=== PATIENT | male | born 2000 | race Native Hawaiian/Other Pacific Islander ===

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

== ENCOUNTER 2021-01-08 13:29 | Outpatient (CLI) | payer MEDICAID, SELFPAY ==
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
== END 2021-01-08 13:49 ==
PROVIDERS: PCP Pediatrics; Visit Provider Physician Assistant
DX: S62.326D Displaced fracture of shaft of fifth metacarpal bone, right hand, subsequent encounter for fracture with routine healing (principal)
CPT/HCPCS: 73130

== ENCOUNTER 2021-01-09 13:54 | Emergency (ER) | payer MEDICAID, SELFPAY ==
[2021-01-09 13:58] VITALS: BP 148/85; PULSE 102; RESP 18; TEMP 36.6; O2SAT 99
--- NOTE | 2021-01-09 14:15 | ED.GENADUL_ITS ---
Discharge Plan Disposition Patient Disposition: HOME Condition: Stable Discharge Details Clinical Impression: Side pain, Chest wall pain Primary Care Provider: Dmitry Simmons ED Provider: Yaneth Sexton Home Meds and New Rx's Prescriptions: Continued clotrimazole 1 % cream 1 applic topical BID 28 Days Qty: 15 RF: 1 Discharge Instructions Instructions: Flank Pain (ED), Chest Wall Pain (ED) Additional Instructions: Drink plenty of fluids and get plenty of rest. Alternate ice and heat to the affected area(s) several times daily for 20 minutes at a time. Alternate tylenol and motrin as needed and directed for pain. You can try [id number] lidoderm patches to use as needed and directed for pain. You can try [id number] Lotrimin cream to use on your rash if you do not fill the clotrimazole prescription. If you have no relief with the Lotrimin, you should fill the clotrimazole prescription and use as directed. If your rash does not improve or worsens, follow-up with dermatology for further evaluation. Follow-up with your primary care doctor in 1 week. Return to the emergency department with any worsening or new concerning symptoms such as fever, persistent vomiting, worsening pain or any other concerns for reevaluation. Discharge Data Discharge Date/Time-TO BE ENTERED AT DEPARTURE: 01/09/21 17:15 Discharge Physician: Yaneth Sexton Medical Decision Making <Luiz Connor MD - Last Filed: 01/09/21 15:03> 20 yo male with hx of depression and migraines comes in with cc of right flank pain per patient for several days. He localizes it to the right chest in the mid axillary line over the 9-10 ribs and also in the right oblique. Deneis fevers, chills, diaphoresis. HAs no abdominal tenderness and has reproduble pain in the right oblique and right lower shalonda wall, suspect musculoskeletal chest pain but given location and worsening pain will obtain renal colic to evaluate for kidney stone. HAs no central chest pressure, no diaphoresis and heart score is 1 so doubt acs at this time but will obtain ecg and troponin. Wells low, no evidence of dvt, will obtain d d ole to evaluate for possible PE. No abdominal tenderness to suggest surgical pathology such as sbo, appendicitis, cholecystitis. Differential Diagnosis Differential Diagnosis: kidney stone, chest wall pain, pe ECG Data Attestation: I personally reviewed and interpreted this ECG (s) as follows: Prior ECG tracings: not available for review Interpretation: sinus rhythm, rate of 83, pr 154, qtc 410 <Yaneth Sexton DO - Last Filed: 01/09/21 21:30> 1500 --please see Dr. Connor's note for initial presentation, exam and plan. Case endorsed to follow-up on labs and imaging and final disposition. Patient assessed by me at bedside. He states he has had right lateral rib pain for the past 3 days that has been constant sharp pain and worse with movement or certain positions. Denies any known injury. He denies any fever, cough, chest pain, shortness of breath, nausea, vomiting, diarrhea, urinary symptoms. He has not taken any medication for pain. He declined a dose of Toradol to the nurse. His right lateral inferior chest is tender to palpation. He has right anterior upper quadrant tenderness but nontender to deep palpation. There is no evidence of rash or cellulitis. He has no CVA tenderness. Discussed with patient that it appears his presentation is musculoskeletal as it is reproducible and tender to palpation and worse with movement. Presentation not consistent with a GI etiology as he has no GI symptoms and not consistent with etiology as he has no urinary symptoms. CT is reviewed and negative. Urinalysis negative. D-dimer negative. We will add a metabolic panel. Patient now agreeable to the dose of Toradol. We will also place Lidoderm patch. 1700 --metabolic panel unremarkable. Patient reassessed and he denies any significant change in symptoms. Patient is requesting to go home. Patient advised to alternate ice and heat, Tylenol and Motrin. Advised to follow up with the primary care doctor for re-evaluation. Usual and customary return precautions given prior to discharge. Medical Records Medical records reviewed: Yes I reviewed the patient's medical records. Imaging Data Radiologic Study: Radiologist's impression: CT RENAL COLIC WO CLINICAL HISTORY: right flank pain. TECHNIQUE: Imaging Protocol: Axial computed tomography images with coronal and sagittal reformatted images were created and reviewed. CONTRAST MATERIAL: Noncontrast COMPARISON: No exams were available for comparison FINDINGS: ABDOMEN: Liver: Enlarged with moderate to severe hepatic steatosis.. No measurable mass. Gallbladder and biliary tract: No radiodense calculus or dilation. Pancreas: Normal density, no calcifications or inflammatory process. Spleen: Normal. Kidneys: Normal size, contour and axis. No radiodense stones or obstructive uropathy. No masses seen. No perinephric collection Adrenal glands: No masses seen. Abdominal Aorta: Abdominal portion non-dilated. PELVIS: Bladder: Symmetric distention, no gross wall thickening. Bowel: No obstruction or bowel wall thickening. Peritoneal cavity: No ascites, collection or mesenteric inflammatory response. Bones: Within normal limits. IMPRESSION: Unremarkable noncontrast CT scan of the abdomen and pelvis. Lab Data Lab results reviewed: Yes I reviewed the patient's lab results. Labs: Laboratory Tests Range/Units 01/09/21 01/09/21 01/09/21 15:10 15:10 15:10 WBC (4.4-10.8) 10^3/uL 6.96 RBC (4.36-5.78) 10^6/uL 5.57 Hgb (13.5-17.5) g/dL 14.4 Hct (40.0-50.0) % 45.1 MCV (80-95) fL 81.0 MCH (27.0-33.0) pg 25.9 L MCHC (32.0-36.0) % 31.9 L RDW (11.8-14.1) % 13.4 Plt Count (130-400) 10^3/uL 299 MPV (8.0-11.0) fL 10.0 Immature Gran % 0.3 Neutrophils % 60.8 Lymphocytes % 29.6 Monocytes % 7.0 Eosinophils % 1.3 Basophils % 1.0 Nucleated RBC % % 0 Absolute Neutrophils (1.2-6.7) 10^3/uL 4.23 Absolute Lymphocytes (1.2-3.4) 10^3/uL 2.06 Absolute Monocytes (0.1-0.8) 10^3/uL 0.49 Absolute Eosinophils (0.0-0.7) 10^3/uL 0.09 Absolute Basophils (0.0-0.2) 10^3/uL 0.07 PT (9.3-11.0) sec 10.1 INR (0.9-1.1) 1.0 APTT (21.0-27.5) sec 27.2 D-Dimer (<500) ng/mlFEU 182 Sodium (136-145) mmol/L Potassium (3.5-5.1) mmol/L Chloride (98-107) mmol/L Carbon Dioxide (21.0-32.0) mmol/L Anion Gap (3-11) mmol/L BUN (7-18) mg/dL Creatinine (0.70-1.30) mg/dL Estimated GFR/1.73 m2 (mL/min/1.73m2) Glucose (74-106) mg/dL Calcium (8.5-10.1) mg/dL Magnesium (1.8-2.4) mg/dL 2.1 Total Bilirubin (0.2-1.0) mg/dL 0.4 Conjugated Bilirubin (0.0-0.2) mg/dL 0.1 AST (15-37) U/L ALT (16-63) U/L Alkaline Phosphatase (46-116) U/L Troponin I (<0.06) ng/mL < 0.05 Total Protein (6.4-8.2) g/dL Albumin (3.4-5.0) g/dL Lipase (73-393) U/L 82 Urine Color (Yellow) Urine Clarity (Clear) Urine pH (5-8) Ur Specific [place] (1.005-1.025) Urine Protein (Negative) mg/dL Urine Ketones (Negative) mg/dL Urine Blood (Negative) Urine Nitrite (Negative) Urine Bilirubin (Negative) Urine Urobilinogen (Up TO 0.2) EU/dL Ur Leukocyte Esterase (Negative) Urine Glucose (Negative) mg/dL Range/Units 01/09/21 01/09/21 15:10 15:15 WBC (4.4-10.8) 10^3/uL RBC (4.36-5.78) 10^6/uL Hgb (13.5-17.5) g/dL Hct (40.0-50.0) % MCV (80-95) fL MCH (27.0-33.0) pg MCHC (32.0-36.0) % RDW (11.8-14.1) % Plt Count (130-400) 10^3/uL MPV (8.0-11.0) fL Immature Gran % Neutrophils % Lymphocytes % Monocytes % Eosinophils % Basophils % Nucleated RBC % % Absolute Neutrophils (1.2-6.7) 10^3/uL Absolute Lymphocytes (1.2-3.4) 10^3/uL Absolute Monocytes (0.1-0.8) 10^3/uL Absolute Eosinophils (0.0-0.7) 10^3/uL Absolute Basophils (0.0-0.2) 10^3/uL PT (9.3-11.0) sec INR (0.9-1.1) APTT (21.0-27.5) sec D-Dimer (<500) ng/mlFEU Sodium (136-145) mmol/L 141 Potassium (3.5-5.1) mmol/L 4.0 Chloride (98-107) mmol/L 104 Carbon Dioxide (21.0-32.0) mmol/L 26.9 Anion Gap (3-11) mmol/L 10.1 BUN (7-18) mg/dL 15 Creatinine (0.70-1.30) mg/dL 0.9 Estimated GFR/1.73 m2 (mL/min/1.73m2) >= 60.00 Glucose (74-106) mg/dL 113 H Calcium (8.5-10.1) mg/dL 9.4 Magnesium (1.8-2.4) mg/dL Total Bilirubin (0.2-1.0) mg/dL 0.4 Conjugated Bilirubin (0.0-0.2) mg/dL AST (15-37) U/L 21 ALT (16-63) U/L 55 Alkaline Phosphatase (46-116) U/L 91 Troponin I (<0.06) ng/mL Total Protein (6.4-8.2) g/dL 8.3 H Albumin (3.4-5.0) g/dL 4.0 Lipase (73-393) U/L Urine Color (Yellow) Yellow Urine Clarity (Clear) Clear Urine pH (5-8) 6.0 Ur Specific [place] (1.005-1.025) >= 1.030 H Urine Protein (Negative) mg/dL Negative Urine Ketones (Negative) mg/dL Negative Urine Blood (Negative) Negative Urine Nitrite (Negative) Negative Urine Bilirubin (Negative) Negative Urine Urobilinogen (Up TO 0.2) EU/dL 0.2 Ur Leukocyte Esterase (Negative) Negative Urine Glucose (Negative) mg/dL Negative HPI <Luiz Connor MD - Last Filed: 01/09/21 15:03> General Mode of arrival: ambulatory . Date/Time Provider Initiated Documentation: 01/09/21 14:05 . Limitations to Documentation: no limitations . Information obtained by: patient . History of Present Illness 20 year old M presents to the emergency department with the chief complaint of right flank pain, described as moderate, Patient started experiencing this day(s) (3) and it has been constant. No relieving factors improve symptom(s), No exacerbating factors reported . Patient did receive the following treatments prior to arrival, none Related Data Home Medications Medication Instructions Recorded Confirmed clotrimazole 1 % topical cream 1 applic TOPICAL BID 28 Days #15 g 01/07/21 01/09/21 Previous Rx's Medication Instructions Recorded clotrimazole 1 % topical cream 1 applic TOPICAL BID 28 Days #15 g 01/07/21 Allergies Allergy/AdvReac Type Severity Reaction Status Date / Time sumatriptan [From Imitrex] AdvReac Intermediate HEAD FELT Verified 01/09/21 14:03 HOT AND LIKE PINS AND NEEDLES. General Stated Complaint: FlankPain DANISH: 3 Review of Systems <Luiz Connor MD - Last Filed: 01/09/21 15:03> All systems reviewed & are unremarkable except as noted in HPI and below Constitutional Constitutional: Denies chills, Denies fever(s) and Denies weakness Cardiovascular Cardiovascular: Denies dyspnea Respiratory Respiratory: Denies cough and Denies dyspnea Gastrointestinal Gastrointestinal: Denies nausea and Denies vomiting Integumentary/Breasts Skin/Breast: Denies rash Neurologic Neurologic: Denies weakness Psychiatric Psychiatric: Denies depression Endocrine Endocrine: Denies heat intolerance PFSH <Luiz Connor MD - Last Filed: 01/09/21 15:03> Medical History (Updated 01/09/21 @ 17:15 by Yaneth Sexton DO) BMI (body mass index), 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, obese child structured weight management/multidisciplinary intervention category (11/09/16) Depression 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[employer] [employer] Headache Insomnia Migraine, unspecified, not intractable, without status migrainosus (11/30/16) School issues ?ADD 11/09 504 PLAN Family History Mother Substance abuse Father Substance abuse Social History (Updated 06/19/19 @ 13:06 by Adriana Hernandez RN) Smoking/Tobacco Use Status: Current-Occasional Tobacco Type: cigarettes, cigars and e-cigarettes Second Hand Exposure: No Smoking risk assessment performed?: Yes Alcohol Intake: current Alcohol Intake frequency: a few times a month Drug use: Occasionally Substance use type: marijuana Household members: other Details: roommate Housing: apartment Do you feel safe at home: Yes Do you feel safe in your relationship?: Yes Exam <Luiz Connor MD - Last Filed: 01/09/21 15:03> Const General: no acute distress Orientation: alert HENMT Head: normal to inspection Ears: external ears normal General nose exam: external nose normal Mouth: moist mucous membranes Eyes General: appearance normal, both eyes and all related structures Neck Neck: normal visual inspection Chest Chest: no crepitus and tenderness Resp Effort & Inspection: normal respiratory effort and able to speak in complete sentences Cardio Rate: regular rate GI Palpation: soft Skin General skin exam: no rashes or lesions noted Neuro General: patient alert and patient oriented x3 Extrem General: normal to inspection Psych Mental Status: mental status grossly normal Course <Luiz Connor MD - Last Filed: 01/09/21 15:03> Vital Signs Vital signs: Vital Signs Temperature 36.6 C 01/09/21 13:58 Pulse 102 H 01/09/21 13:58 Respiratory Rate 18 01/09/21 13:58 Blood Pressure 148/85 H 01/09/21 13:58 Pulse Oximetry 99 01/09/21 13:58 Temperature 36.6 C 01/09/21 13:58 Temperature Source Skin 01/09/21 13:58 Pulse 102 H 01/09/21 13:58 Respiratory Rate 18 01/09/21 13:58 Respiratory Effort 01/09/21 14:04 Blood Pressure 148/85 H 01/09/21 13:58 Blood Pressure Position Sitting 01/09/21 13:58 Pulse Oximetry 99 01/09/21 13:58 Oxygen Delivery Method Room Air 01/09/21 13:58 Oxygen Flow Rate 0 01/09/21 13:58 Pain Level 7 01/09/21 13:58 Sign Out <Luiz Connor MD - Last Filed: 01/09/21 15:03> Sign Out Data: Sign Out Comment: flank pain, pending labs and imaging, dispo Last updated by Luiz oCnnor MD at 01/09/21 14:43
--- NOTE | 2021-01-09 14:15 | RT.EKG_ITS ---
APPROVED REPORT Exam: Resting ECG Patient Location: E HR:83 bpm ECG Measurements Heart Rate 83 AXIS CA 154 P 14 QRSd 92 QRS -6 QT 349 T 46 QTc 410 Conclusion Sinus rhythm...normal P axis, V-rate 60- 99
--- NOTE | 2021-01-09 15:05 | DI.CT_ITS ---
EXAM: CT RENAL COLIC WO CLINICAL HISTORY: right flank pain. TECHNIQUE: Imaging Protocol: Axial computed tomography images with coronal and sagittal reformatted images were created and reviewed. CONTRAST MATERIAL: Noncontrast COMPARISON: No exams were available for comparison FINDINGS: ABDOMEN: Liver: Enlarged with moderate to severe hepatic steatosis.. No measurable mass. Gallbladder and biliary tract: No radiodense calculus or dilation. Pancreas: Normal density, no calcifications or inflammatory process. Spleen: Normal. Kidneys: Normal size, contour and axis. No radiodense stones or obstructive uropathy. No masses seen. No perinephric collection Adrenal glands: No masses seen. Abdominal Aorta: Abdominal portion non-dilated. PELVIS: Bladder: Symmetric distention, no gross wall thickening. Bowel: No obstruction or bowel wall thickening. Peritoneal cavity: No ascites, collection or mesenteric inflammatory response. Bones: Within normal limits. IMPRESSION: Unremarkable noncontrast CT scan of the abdomen and pelvis. RADIATION DOSE DELIVERED: 1,317.96mGy.cm Total DLP DATA REPOSITORY: All CT scans at this facility are submitted to the National Radiology Data Registry (NRDR) Dose Index Registry (DIR) with the [employer] (A[employer]). RADIATION OPTIMIZATION: All CT scans at this facility use at least one of these dose optimization te chniques: automated exposure control; mA and/or kV adjustment per patient size (includes targeted exa ms where dose is matched to clinical indication); or iterative reconstruction.
[2021-01-09 15:23] LABS: Abs Immature Grans 0.02 10^3/uL (0.0-0.06); Absolute Basophil Count 0.07 10^3/uL (0.0-0.2); Absolute Eosinophil Count 0.09 10^3/uL (0.0-0.7); Absolute Lymphocyte Count 2.06 10^3/uL (1.2-3.4); Absolute Monocyte Count 0.49 10^3/uL (0.1-0.8); Absolute Neutrophil Count 4.23 10^3/uL (1.2-6.7); Eosinophils % 1.3; HCT 45.1 % (40.0-50.0); HGB 14.4 g/dL (13.5-17.5); Immature Grans % 0.3; Lymphocytes % 29.6; MCH 25.9 pg (27.0-33.0); MCHC 31.9 % (32.0-36.0); Neutrophils % 60.8; Nucleated RBC 0 %; Platelet Count 299 10^3/uL (130-400); RBC 5.57 10^6/uL (4.36-5.78); RDW 13.4 % (11.8-14.1); RDW-SD 39.3 fL; WBC 6.96 10^3/uL (4.4-10.8)
[2021-01-09 15:36] LABS: PTT Activated 27.2 sec (21.0-27.5); Prothrombin Time 10.1 sec (9.3-11.0)
[2021-01-09 15:39] LABS: Bilirubin, Direct 0.1 mg/dL (0.0-0.2); Bilirubin, Total 0.4 mg/dL (0.2-1.0); Lipase 82 U/L (73-393); Magnesium 2.1 mg/dL (1.8-2.4)
[2021-01-09 15:44] LABS: Bilirubin Negative (Negative); Blood Negative (Negative); Clarity Clear (Clear); Glucose Negative (Negative); Ketones Negative (Negative); Leukocyte Esterase Negative (Negative); Nitrite Negative (Negative); Specific Gravity >= 1.030 (1.005-1.025); Urobilinogen 0.2 EU/dL (Up TO 0.2)
[2021-01-09 15:53] LABS: D-Dimer 182 ng/mlFEU (<500)
[2021-01-09] MEDS: Ketorolac 30 MG/ML VIAL IVP (16:14)
[2021-01-09] MEDS: Lidocaine 5% Patch 1 PATCH TP (16:15)
[2021-01-09 16:23] LABS: Troponin I < 0.05 ng/mL (<0.06)
[2021-01-09 16:50] LABS: ALT 55 U/L (16-63); AST 21 U/L (15-37); Alkaline Phosphatase 91 U/L (46-116); Anion Gap 10.1 mmol/L (3-11); BUN 15 mg/dL (7-18); Bilirubin, Total 0.4 mg/dL (0.2-1.0); CO2 26.9 mmol/L (21.0-32.0); CREATININE 0.9 mg/dL (0.70-1.30); Calcium 9.4 mg/dL (8.5-10.1); Chloride 104 mmol/L (98-107); Glucose 113 mg/dL (74-106); Sodium 141 mmol/L (136-145); Total Protein 8.3 g/dL (6.4-8.2)
[2021-01-09 17:19] VITALS: BP 129/75; PULSE 68; RESP 18; TEMP 36.7; O2SAT 99
== END 2021-01-09 17:15 | disposition home or self-care (01) ==
PROVIDERS: Emergency Medicine; Emergency Provider Physician Assistant; PCP Pediatrics
DX: R10.9 Unspecified abdominal pain (principal); R07.89 Other chest pain
CPT/HCPCS: 80053; 83690; 93005; 96374; 99284; 74176; 81003; 82247; 82248; 83735; 84484; 85025; 85379; 85610; 85730; 93010; 99283; J1885

== ENCOUNTER 2021-06-16 13:51 | Emergency (ER) | payer MEDICAID, SELFPAY ==
[2021-06-16 13:55] VITALS: BP 137/99; PULSE 96; RESP 18; TEMP 36.5; O2SAT 95
--- NOTE | 2021-06-16 14:01 | ED.GENADUL_ITS ---
Discharge Plan Disposition Patient Disposition: HOME Condition: Good Discharge Details Clinical Impression: Acute otalgia Primary Care Provider: Unknown,Unknown ED Provider: Gaby Saunders Home Meds and New Rx's Prescriptions: No Action No Known Home Meds RF: 0 Discharge Instructions Additional Instructions: Please follow-up with your primary care physician as needed There is no evidence of any foreign body in your ear right now Please return earlier should you have new or worsening complaints Discharge Data Discharge Date/Time-TO BE ENTERED AT DEPARTURE: 06/16/21 14:10 Medical Decision Making Patient appears well, there is no obvious foreign body visualized on exam Discharged home in stable condition Return precautions discussed Blood pressure recheck by primary care physician in the outpatient setting recommended [facility] General Mode of arrival: ambulatory . Date/Time Provider Initiated Documentation: 06/16/21 13:51 . Limitations to Documentation: no limitations . Information obtained by: patient . HPI Narrative: This 20-year-old male presents with sensation of foreign body in left ear. He states is been going on for the past 2 days. He states that right now she is asymptomatic. He denies any headache, chest pain, shortness of breath. He states he feels a fluttering sensation in his ear. He is concerned that there is a spider present. He tried irrigating his ear last evening states he is asymptomatic until this morning lasted several seconds. Currently he is asymptomatic. He denies any additional complaints at this time. Denies any pain complaints. Denies any fluid from the ear. Related Data Home Medications Medication Instructions Recorded Confirmed Unknown [No Known Home Meds] 06/16/21 06/16/21 Allergies Allergy/AdvReac Type Severity Reaction Status Date / Time sumatriptan [From Imitrex] AdvReac Intermediate HEAD FELT Verified 06/16/21 14:00 HOT AND LIKE PINS AND NEEDLES. 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[employer] [facility] Headache Insomnia Migraine, unspecified, not intractable, without status migrainosus (11/30/16) School issues ?ADD 11/09 504 PLAN Family History Mother Substance abuse Father Substance abuse Maternal Grandmother Myocardial infarction Social History Smoking/Tobacco Use Status: Current-Occasional Tobacco Type: cigarettes, cigars and e-cigarettes Second Hand Exposure: No Smoking risk assessment performed?: Yes Alcohol Intake: current Alcohol Intake frequency: a few times a month Drug use: Occasionally Substance use type: marijuana Housing: apartment Communication Needs: None Pets and animals: No Do you feel safe at home: Yes Do you feel safe in your relationship?: Yes Exam Const General: cooperative, healthy appearing and comfortable HENMT Ears: hearing grossly normal bilaterally and TM's normal bilaterally Mouth: oral mucosae normal Other: No foreign body noted to bilateral external auditory canals, tiny amount of cerumen noted, typically no foreign body to left ear Can light intact, no perforation, no mastoid tenderness Course Vital Signs Vital signs: Vital Signs Temperature 36.5 C 06/16/21 13:55 Pulse 96 H 06/16/21 13:55 Respiratory Rate 18 06/16/21 13:55 Blood Pressure 137/99 H 06/16/21 13:55 Pulse Oximetry 95 06/16/21 13:55 Temperature 36.5 C 06/16/21 13:55 Temperature Source Oral 06/16/21 13:55 Pulse 96 H 06/16/21 13:55 Respiratory Rate 18 06/16/21 13:55 Blood Pressure 137/99 H 06/16/21 13:55 Blood Pressure Position Sitting 06/16/21 13:55 Pulse Oximetry 95 06/16/21 13:55 Oxygen Delivery Method Room Air 06/16/21 13:55 Oxygen Flow Rate 0 06/16/21 13:55 Pain Level 0 06/16/21 13:55
== END 2021-06-16 14:10 | disposition home or self-care (01) ==
PROVIDERS: Emergency Provider Physician Assistant
DX: H92.02 Otalgia, left ear (principal)
CPT/HCPCS: 99282; 99281

== ENCOUNTER 2021-06-16 23:32 | Emergency (ER) | payer MEDICAID, SELFPAY ==
[2021-06-16 23:38] VITALS: BP 153/83; PULSE 72; RESP 18; TEMP 36.7; O2SAT 96
--- NOTE | 2021-06-16 23:47 | ED.GENADUL_ITS ---
Discharge Plan Disposition Patient Disposition: HOME Condition: Good Discharge Details Clinical Impression: Acute pain of left ear Primary Care Provider: Unknown,Unknown ED Provider: Bj Tamayo Home Meds and New Rx's Prescriptions: No Action No Known Home Meds RF: 0 Discharge Instructions Instructions: Earache (ED) Additional Instructions: At this time there is no evidence of infection in the ear. You certainly do have some tension at your temporomandibular joint, this may be causing some referred pain. There is no evidence of significant mass or other abnormality to suggest a clear cause of the pain otherwise. Please follow-up closely with the ENT doctor. We have placed a referral, they will contact you when they have an appointment date. If you notice any worsening of your symptoms, or any new symptoms such as vomiting, diarrhea, fever, chills, shortness of breath, chest pain, numbness, weakness, or fainting , please return immediately to the emergency department for reevaluation. Please follow up with your primary care provider as soon as possible for reassessment and reevaluation. As always, it was a pleasure participating in your medical care today. Referrals: Jerry Luu DO [OSTEOPATHIC DOCTOR] - Marty Hong MD [ [facility] STAFF PHYSICIAN] - Medical Decision Making This is a 20-year-old male who presents for reassessment of left ear pain. Patient was seen earlier today for evaluation of left ear pain. Patient states that occasionally he will have a sharp shooting pain in his left ear that is brief, lasts a few seconds and goes away. He did try Tylenol and Motrin but this did not change anything. He denies fever or chills. She denies severe headache. He denies any trauma. She denies any hearing changes. No other complaints at this time. Patient states that sometimes talking seems to bring about the pain. No other modifying factors. Exam demonstrates a notably unremarkable and very reassuring left ear. Especially in comparison with the right I see no significant abnormalities evidence of infection, large cholesteatomas or other problems. The patient does demonstrate a mild amount of tenderness over the TMJs bilaterally, slight clicking on the right but not the left. This may be the cause of the patient's irritation, but uncertain. The patient's recurrent pain he is seeking further evaluation. We will place a referral for ENT for further assessment. Neurologic exam is normal, no evidence to suggest large mass or tumor intracranially from exam, no indication for emergent imaging at this time. Recommend close follow-up with ENT. Discussed red flags which to return. Discussed stretching techniques for TMJ. I have extensively reviewed the treatment plan and discharge instructions with the patient. I have addressed all patient concerns at this time. The patient was made aware of what symptoms to monitor for that would warrant a return to the emergency department. Discussed the plan with the patient, they demonstrate verbal understanding and agreement with our assessment and plan at this time. The documentation in this chart was dictated using [employer] dictation software. Please excuse any dictation errors. HPI General Date/Time Provider Initiated Documentation: 06/16/21 23:33 . HPI Narrative: This is a 20-year-old male who presents for reassessment of left ear pain. Patient was seen earlier today for evaluation of left ear pain. Patient states that occasionally he will have a sharp shooting pain in his left ear that is brief, lasts a few seconds and goes away. He did try Tylenol and Motrin but this did not change anything. He denies fever or chills. She denies severe headache. He denies any trauma. She denies any hearing changes. No other complaints at this time. Patient states that sometimes talking seems to bring about the pain. No other modifying factors. Related Data Home Medications Medication Instructions Recorded Confirmed Unknown [No Known Home Meds] 06/16/21 06/16/21 Allergies Allergy/AdvReac Type Severity Reaction Status Date / Time sumatriptan [From Imitrex] AdvReac Intermediate HEAD FELT Verified 06/16/21 14:00 HOT AND LIKE PINS AND NEEDLES. 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[employer] [facility] Headache Insomnia Migraine, unspecified, not intractable, without status migrainosus (11/30/16) School issues ?ADD 11/09 504 PLAN Family History Mother Substance abuse Father Substance abuse Maternal Grandmother Myocardial infarction Social History Smoking/Tobacco Use Status: Current-Occasional Tobacco Type: cigarettes, cigars and e-cigarettes Second Hand Exposure: No Smoking risk assessment performed?: Yes Alcohol Intake: current Alcohol Intake frequency: a few times a month Drug use: Occasionally Substance use type: marijuana Housing: apartment Communication Needs: None Pets and animals: No Do you feel safe at home: Yes Do you feel safe in your relationship?: Yes Exam Narrative Exam Narrative: 1.Const: Well-nourished, Well-developed, appearing stated age 2.Eyes: PERRL, no conjunctival injection, and symmetrical lids. 3.ENT: Atraumatic external nose and ears. Moist MM. Neck: Symmetric, trachea midline, No thyromegaly. Patient's left ear demonstrates no significant erythema, no effusion behind the tympanic membrane, no redness around the tympanic membrane. There is some external canal irritation secondary to digital exploration. No evidence of bleeding or rupture whatsoever. Osseous structures appear intact with no significant abnormalities aside for a slightly atypical calcification just anterior to the short process of the malleus. No other abnormalities. Jaw moves well. No tenderness over the mastoid process. 4.CVS: +S1/S2, No murmurs or gallops. Peripheral pulses 2+ and equal in all extremities. Brisk capillary refill in all extremities. 5.RESP: Unlabored respiratory effort. Clear to auscultation bilaterally. No wheezes rales or rhonchi 6.GI: Soft, Nontender/Nondistended, No hepatosplenomegaly. No guarding or rebound. 7.MSK: Normocephalic/Atraumatic, Extremities w/o deformity or ttp No cyanosis or clubbing, Normal movement of all extremities 8.Skin: Warm, Dry. No rashes or lesions. 9.Neuro: applications intern II-XII grossly intact. Sensation grossly intact, no focal neurologic deficits. All 6 cardinal planes of vision are fully intact. No evidence of rotatory or vertical nystagmus. The patient demonstrated a normal mdczhm-vrej-niwbei, good dexterity. There was no evidence of dysdiadochokinesia. Patient was able to ambulate without difficulty. There was no wide-based gait. Romberg testing was normal. Vltr-cn-dude testing was normal. Sensation was intact bilaterally as well as muscle strength bilaterally for all extremities. Patient was able to verbalize butter cup with no slurring, or miss pronunciation. 10.Psych: (AAO) x3. Appropriate mood and affect Course Vital Signs Vital signs: Vital Signs Temperature 36.7 C 06/16/21 23:38 Pulse 72 06/16/21 23:38 Respiratory Rate 18 06/16/21 23:38 Blood Pressure 153/83 H 06/16/21 23:38 Pulse Oximetry 96 06/16/21 23:38 Temperature 36.7 C 06/16/21 23:38 Temperature Source Skin 06/16/21 23:38 Pulse 72 06/16/21 23:38 Respiratory Rate 18 06/16/21 23:38 Respiratory Effort Non-Labored 06/16/21 23:40 Blood Pressure 153/83 H 06/16/21 23:38 Pulse Oximetry 96 06/16/21 23:38 Oxygen Delivery Method Room Air 06/16/21 23:38 Oxygen Flow Rate 0 06/16/21 23:38 Pain Level 8 06/16/21 23:38
--- NOTE | 2021-06-17 00:40 | NUR.NOTE ---
Referral faxed to ENT for shooting ear pain f/u in 1-2wks.Nursing Note:
== END 2021-06-17 00:05 | disposition home or self-care (01) ==
PROVIDERS: Emergency Provider Student in an Organized Health Care Education/Training Program
DX: H92.02 Otalgia, left ear (principal)
CPT/HCPCS: 99281

== ENCOUNTER 2021-06-30 20:37 | Emergency (ER) | payer MEDICAID, SELFPAY ==
--- NOTE | 2021-06-30 20:30 | DI.RAD_ITS ---
Exam(s) XR HAND RT COMPLETE EXAM: XR HAND RT COMPLETE CLINICAL HISTORY: recent fracture of 5th MC, just hit wall again. TECHNIQUE: 2D digital imaging was performed. COMPARISON: CR XR HAND RT COMPLETE from 01/08/2021 FINDINGS: There has been refractured ower at the previously healed fracture site at the midshaft of the 5th met acarpal. This acute fracture exhibits an element of volar angulation. No other fractures identified . No radiopaque foreign body. IMPRESSION: Acute refracture at the midshaft of the 5th metacarpal. DATA REPOSITORY: RADIATION DOSE DELIVERED:
[2021-06-30 20:42] VITALS: BP 151/85; PULSE 87; RESP 14; TEMP 36; O2SAT 97
--- NOTE | 2021-06-30 20:44 | ED.GENADUL_ITS ---
Discharge Plan Disposition Patient Disposition: HOME Condition: Good Discharge Details Clinical Impression: Closed fracture of fifth metacarpal bone, Depression Primary Care Provider: Unknown,Unknown ED Provider: Bj Tamayo Home Meds and New Rx's Prescriptions: No Action No Known Home Meds RF: 0 Discharge Instructions Instructions: Depression (ED), Boxer Fracture (ED) Additional Instructions: At this time you do have evidence of a fracture of your fifth metacarpal. Please keep the splint on until you are reassessed by your family doctor or clinical review specialist. We have placed a referral for both of these and they will contact you for follow-up appointments where indicated. Please use Tylenol and Motrin as needed for pain. If you notice any change in color for your fingers, hand, decreased sensation, or other concerning pain please loosen up your splint return immediately for reassessment. Please utilize our mental health advocate for your follow-up, as well as for support. It will be contacting you again at home shortly. If you have any concerns in the meantime do not hesitate to call them at the following number: [phone] If you notice any worsening of your symptoms, or any new symptoms such as vomiting, diarrhea, fever, chills, shortness of breath, chest pain, numbness, weakness, or fainting , please return immediately to the emergency department for reevaluation. Please follow up with your primary care provider as soon as possible for reassessment and reevaluation. As always, it was a pleasure participating in your medical care today. Medical Decision Making 20-year-old male presents today for pain in his right hand after striking a wall. Patient is ambidextrous, few weeks ago he did hit his hand on a wall at that time as well, developed small fracture. He has not been in a cast or splint. He hit the same spot again while hitting the wall with the lateral aspect of his right hand. He admits to pain at that area, he denies any numbness or tingling. No other pain anywhere else. No other complaints at this time. Physical exam demonstrates a large osseous healing site on the fifth metacarpal from his previous injury, this also appears to be the area of pain tenderness and swelling currently. No rotational deformity on flexion. Normal sensation no other tenderness throughout the rest of the hand. Concern is highest for repeat fracture of the previous fractured area. We will get an x-ray. Patient does not want any Tylenol or Motrin at this time. 10 PM X-ray shows evidence of acute fracture of the fifth metacarpal shaft. Patient was splinted with a short arm ulnar gutter/boxer splint. Palmar angle is slightly more than I expected, so we will add in Ortho follow-up consult if indicated. Patient does not have rotational deformity at this time that I can appreciate on flexion and extension. patient tolerated splint well. While the patient was being splinted he did state that he has been feeling quite sad lately, does not want to kill himself or end his life but does want help and resources on outpatient basis. Contacted mental health, case was discussed with Hira. She is in contact with the patient now, Discussion together patient is safe for discharge home. Will establish PCP with the patient for reassessment of hand. Discussed red flags for which to return. I have extensively reviewed the treatment plan and discharge instructions with the patient. I have addressed all patient concerns at this time. The patient was made aware of what symptoms to monitor for that would warrant a return to the emergency department. Discussed the plan with the patient, they demonstrate verbal understanding and agreement with our assessment and plan at this time. The documentation in this chart was dictated using [employer] dictation software. Please excuse any dictation errors. FINDINGS: Bones/joints: There is an acute fracture of the 5th metacarpal shaft. Mild apex dorsal angulation. This fractures superimposed on a prior fracture. Soft tissues: Soft tissue swelling seen dorsally. IMPRESSION: There is an acute fracture of the 5th metacarpal shaft. Thank you for allowing us to participate in the care of your patient. Dictated and Authenticated by: Luis Daniel Smith MD 06/30/2021 9:39 PM Eastern Time ([place] & [place]) HPI General Date/Time Provider Initiated Documentation: 06/30/21 20:39 . HPI Narrative: 20-year-old male presents today for pain in his right hand after striking a wall. Patient is ambidextrous, few weeks ago he did hit his hand on a wall at that time as well, developed small fracture. He has not been in a cast or splint. He hit the same spot again while hitting the wall with the lateral aspect of his right hand. He admits to pain at that area, he denies any numbness or tingling. No other pain anywhere else. No other complaints at this time. Related Data Home Medications Medication Instructions Recorded Confirmed Unknown [No Known Home Meds] 06/16/21 06/30/21 Allergies Allergy/AdvReac Type Severity Reaction Status Date / Time sumatriptan [From Imitrex] AdvReac Intermediate HEAD FELT Verified 06/30/21 20:45 HOT AND LIKE PINS AND NEEDLES. 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[employer] Headache Insomnia Migraine, unspecified, not intractable, without status migrainosus (11/30/16) School issues ?ADD 11/09 504 PLAN Family History Mother Substance abuse Father Substance abuse Maternal Grandmother Myocardial infarction Social History Smoking/Tobacco Use Status: Current-Occasional Tobacco Type: cigarettes, cigars and e-cigarettes Second Hand Exposure: No Smoking risk assessment performed?: Yes Alcohol Intake: current Alcohol Intake frequency: holidays/special occasions only Drug use: Occasionally Substance use type: marijuana Housing: apartment Communication Needs: None Pets and animals: No Do you feel safe at home: Yes Do you feel safe in your relationship?: Yes Exam Narrative Exam Narrative: 1.Const: Well-nourished, Well-developed, appearing stated age 2.Eyes: PERRL, no conjunctival injection, and symmetrical lids. 3.ENT: Atraumatic external nose and ears. Moist MM. Neck: Symmetric, trachea midline, No thyromegaly. 4.CVS: +S1/S2, No murmurs or gallops. Peripheral pulses 2+ and equal in all extremities. Brisk capillary refill in all extremities. 5.RESP: Unlabored respiratory effort. Clear to auscultation bilaterally. No wheezes rales or rhonchi 6.GI: Soft, Nontender/Nondistended, No hepatosplenomegaly. No guarding or rebound. 7.MSK: Right hand demonstrates tenderness over the mid shaft of the fifth metacarpal bone. Patient had a large osseous structure there that appears to be a healing area from his previous fracture. This area is tender and slightly swollen. Patient demonstrates good flexion and extension of all fingers, no rotational deficit or deformity in comparison with the left hand. No tenderness in the wrist or fingers. 8.Skin: Warm, Dry. No rashes or lesions. 9.Neuro: advanced manager II-XII grossly intact. Sensation grossly intact, no focal neurologic deficits. 10.Psych: (AAO) x3. Appropriate mood and affect
--- NOTE | 2021-06-30 21:39 | DI.VRAD_ITS ---
PROCEDURE INFORMATION: Exam: XR Right Hand Exam date and time: 06/30/2021 8:45 PM Age: 20 years old Clinical indication: Pain; Hand; Right; Patient HX: Recent fracture of 5th mc in December , just hit wall again TECHNIQUE: Imaging protocol: XR Right hand. Views: 3 or more views. COMPARISON: CR XR HAND RT COMPLETE 01/08/2021 3:43 PM FINDINGS: Bones/joints: There is an acute fracture of the 5th metacarpal shaft. Mild apex dorsal angulation. This fractures superimposed on a prior fracture. Soft tissues: Soft tissue swelling seen dorsally. IMPRESSION: There is an acute fracture of the 5th metacarpal shaft. Dictated and Authenticated by: Luis Daniel Smith MD. Ordering:CINDY Lorenzo MD
--- NOTE | 2021-06-30 21:57 | NUR.NOTE ---
provider requesting to establish care with a new pcp and i put the request in the care management mail box, ottoniel ed Nursing Note:
[2021-06-30 22:24] VITALS: BP 151/85; PULSE 87; RESP 14; TEMP 36; O2SAT 97
== END 2021-06-30 22:26 | disposition home or self-care (01) ==
PROVIDERS: Emergency Provider Student in an Organized Health Care Education/Training Program
DX: S62.396A Other fracture of fifth metacarpal bone, right hand, initial encounter for closed fracture (principal); W22.01XA Walked into wall, initial encounter; F32.9 Major depressive disorder, single episode, unspecified
CPT/HCPCS: 29125; 99283; 73130

== ENCOUNTER 2021-09-29 21:24 | Emergency (ER) | payer MEDICAID, SELFPAY ==
[2021-09-29 21:30] VITALS: BP 158/87; PULSE 104; RESP 18; TEMP 36.5; O2SAT 100
[2021-09-29 21:58] LABS: Bilirubin Small (Negative); Blood Negative (Negative); Clarity Sl Cloudy (Clear); Glucose Negative (Negative); Ketones Trace mg/dL (Negative); Leukocyte Esterase Negative (Negative); Nitrite Negative (Negative); Specific Gravity >= 1.030 (1.005-1.025); Urobilinogen 0.2 EU/dL (Up TO 0.2)
--- NOTE | 2021-09-29 22:15 | DI.CT_ITS ---
Exam(s) CT ABDOMEN PELVIS WO EXAM: CT ABDOMEN PELVIS WO CLINICAL HISTORY: left flank pain, dysuria. TECHNIQUE: Imaging Protocol: Axial computed tomography images with coronal and sagittal reformatted images were created and reviewed. COMPARISON: CT CT RENAL COLIC WO from 01/09/2021 FINDINGS: ABDOMEN: Lung Bases: Normal where visualized. Liver: There is diffuse fatty infiltration. There is hepatomegaly present. No measurable mass. Gallbladder and biliary tract: No radiodense calculus or biliary ductal dilation. Pancreas: Normal density, no abnormal calcifications or inflammatory process. Spleen: Normal. Kidneys: Normal size, contour and axis.No radiodense stones or obstructive uropathy. No masses seen. Adrenal glands: No mass is seen. Lymph nodes: Within normal limits. Abdominal Aorta: Abdominal portion non-dilated. PELVIS: Bladder:Symmetric distention, no gross wall thickening. Bowel: No obstruction or bowel wall thickening. No evidence of appendicitis. Peritoneal cavity: No ascites, collection or mesenteric inflammatory response. No free air. Reproductive organs: Within normal limits. Bones: Within normal limits. Soft Tissues: Within normal limits. IMPRESSION: 1. No acute abdominal pelvic process. 2. No evidence of nephrolithiasis or hydronephrosis. RADIATION DOSE DELIVERED: 1,660.42mGy.cm Total DLP DATA REPOSITORY: All CT scans at this facility are submitted to the National Radiology Data Registry (NRDR) Dose Index Registry (DIR) with the [employer] (ACR). RADIATION OPTIMIZATION: All CT scans at this facility use at least one of these dose optimization te chniques: automated exposure control; mA and/or kV adjustment per patient size (includes targeted exa ms where dose is matched to clinical indication); or iterative reconstruction.
[2021-09-29 22:18] LABS: Bacteria Moderate HPF (Negative); Casts 0-2 Fine Granular LPF (Negative); Crystals Negative HPF (Negative); Epithelial Cells Negative HPF (Negative); Mucus Heavy (Negative); Other Cells Few Transitional (Negative); RBC 0-2 HPF (0-2)
[2021-09-29 22:20] LABS: C & S Indicated? Yes
[2021-09-29 22:25] LABS: Abs Immature Grans 0.02 10^3/uL (0.0-0.06); Absolute Basophil Count 0.09 10^3/uL (0.0-0.2); Absolute Eosinophil Count 0.21 10^3/uL (0.0-0.7); Absolute Lymphocyte Count 1.31 10^3/uL (1.2-3.4); Absolute Monocyte Count 0.85 10^3/uL (0.1-0.8); Absolute Neutrophil Count 6.92 10^3/uL (1.2-6.7); Eosinophils % 2.2; HCT 44.1 % (40.0-50.0); Immature Grans % 0.2; Lymphocytes % 13.9; MCH 26.1 pg (27.0-33.0); MCHC 31.7 % (32.0-36.0); MCV 82.3 fL (80-95); Neutrophils % 73.7; Nucleated RBC 0 %; Platelet Count 275 10^3/uL (130-400); RBC 5.36 10^6/uL (4.36-5.78); RDW 13.6 % (11.8-14.1); RDW-SD 40.5 fL
[2021-09-29] MEDS: Normal Saline 1,000 ML 1000 ML IV (22:30)
[2021-09-29 23:15] VITALS: BP 105/53; PULSE 70; RESP 16; O2SAT 97
--- NOTE | 2021-09-29 23:28 | ED.GENADUL_ITS ---
Discharge Plan Disposition Patient Disposition: HOME Condition: Stable Discharge Details Clinical Impression: Dysuria, Acute flank pain Primary Care Provider: Unknown,Unknown ED Provider: Gaby Saunders Home Meds and New Rx's Prescriptions: New ciprofloxacin HCl 500 mg tablet 500 mg PO BID Qty: 19 RF: 0 metoclopramide HCl [Reglan] 10 mg tablet 10 mg PO Q6H Qty: 10 RF: 0 Discharge Instructions Instructions: Dysuria (ED), Flank Pain (ED) Additional Instructions: Take antibiotic as prescribed Reglan as needed for nausea and vomiting Motrin 600 mg every 6-8 hours as needed for pain Tylenol 650 mg every 4-6 hours as needed for pain Reassessment in 24 to 48 hours with persistent pain, with fever, chills, or worsening symptoms, emergency room recommended There is no evidence of kidney stone on your CT scan Your urinalysis had bacteria but does not appear to have a significant urinary tract infection, however your symptoms are consistent with a urinary tract infection, I recommend taking antibiotics as prescribed Referrals: Feliberto Mitchell MD [ [facility] STAFF PHYSICIAN] - Discharge Data Discharge Date/Time-TO BE ENTERED AT DEPARTURE: 09/30/21 00:[address] abdomen and pelvis did not show acute abnormality\ Diagnostic labs are reassuring including CBC, BMP, urine culture pending Patient has bacteria on his urinalysis, urine culture pending, does not have nitrate or leukocyte Estrace, however as he is quite symptomatic I will treat him for urinary tract infection at this time Initiated Cipro for this and empirically He declines any risk of sexually transmitted disease I did consider more ominous pathologies including cauda equina syndrome however patient does not meet any of these criteria and his exam is inconsistent with finding He is given low threshold to return with new or worsening complaints He will need PCP follow-up, referral was placed Discharge home in stable condition with stable vitals, symptomatically improved in terms of nausea Declines any opiate analgesia We will take ibuprofen and Tylenol at home as needed Return precautions discussed patient standing HPI General Mode of arrival: ambulatory . Date/Time Provider Initiated Documentation: 09/29/21 21:43 . Limitations to Documentation: no limitations . Information obtained by: patient . HPI Narrative: This 21-year-old male presents with left flank pain and urinary frequency and burning for the past 5 days. Patient has had 2 episodes of nausea and vomiting in the past 48 hours. He denies any fever or chills. He denies prior history of similar symptoms in the past. He states he was in [place] and was not stopped during that time. He denies any sexual partner or urethral drainage. Denies history of IV drug abuse or immunocompromise status. He denies known exacerbating or alleviating factors for his flank pain. He denies any hematuria. He denies any trauma to the affected area. He denies any abdominal pain. Describes the pain as sharp. Radiates to his groin. Denies testicular pain. Related Data Home Medications Medication Instructions Recorded Confirmed ciprofloxacin HCl 500 mg PO BID #19 tab 09/30/21 metoclopramide HCl [Reglan] 10 mg PO Q6H #10 tab 09/30/21 Previous Rx's Medication Instructions Recorded ciprofloxacin HCl 500 mg PO BID #19 tab 09/30/21 metoclopramide HCl [Reglan] 10 mg PO Q6H #10 tab 09/30/21 Allergies Allergy/AdvReac Type Severity Reaction Status Date / Time sumatriptan [From Imitrex] AdvReac Intermediate HEAD FELT Verified 09/29/21 21:34 HOT AND LIKE PINS AND NEEDLES. 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[employer] Headache Insomnia Migraine, unspecified, not intractable, without status migrainosus (11/30/16) School issues ?ADD 11/09 504 PLAN Family History Mother Substance abuse Father Substance abuse Maternal Grandmother Myocardial infarction Social History Smoking/Tobacco Use Status: Current-Occasional Tobacco Type: cigarettes, cigars and e-cigarettes Second Hand Exposure: No Smoking risk assessment performed?: Yes Alcohol Intake: current Alcohol Intake frequency: holidays/special occasions only Drug use: Occasionally Substance use type: marijuana Housing: apartment Communication Needs: None Pets and animals: No Do you feel safe at home: Yes Do you feel safe in your relationship?: Yes Exam Const General: cooperative and no acute distress HENMT Mouth: oral mucosae normal Resp Effort & Inspection: normal respiratory effort Auscultation: clear to auscultation bilaterally Cardio Rate: regular rate Rhythm: regular rhythm GI Other: Left CVA tenderness, no abdominal bruit or pulsatile mass Other: No testicular tenderness Back/Spine/Pelvis Other: Left CVA tenderness, no ecchymosis, no midline tenderness Skin General skin exam: no rashes or lesions noted Other: Distal pulses intact Neuro General: patient alert and patient oriented x3 Gait: normal gait Motor: strength 5/5 throughout Sensory Exam: no sensory deficits noted Extrem Other: Distal pulses intact, negative straight leg raise bilaterally Course Vital Signs Vital signs: Vital Signs Temperature 36.5 C 09/29/21 21:30 Pulse 104 H 09/29/21 21:30 Respiratory Rate 18 09/29/21 21:30 Blood Pressure 158/87 H 09/29/21 21:30 Pulse Oximetry 100 09/29/21 21:30 Temperature 36.5 C 09/29/21 21:30 Pulse 70 09/29/21 23:15 Respiratory Rate 16 09/29/21 23:15 Respiratory Effort Non-Labored 09/29/21 21:34 Blood Pressure 105/53 L 09/29/21 23:15 Pulse Oximetry 97 09/29/21 23:15 Pain Level 2 09/29/21 23:15 Lab/Test Results Lab/Test Results: 09/29/21 21:40 Urine - Reflex from Ua Urine Culture - Pending Laboratory Tests Range/Units 09/29/21 09/29/21 21:40 22:20 WBC (4.4-10.8) 10^3/uL 9.40 RBC (4.36-5.78) 10^6/uL 5.36 Hgb (13.5-17.5) g/dL 14.0 Hct (40.0-50.0) % 44.1 MCV (80-95) fL 82.3 MCH (27.0-33.0) pg 26.1 L MCHC (32.0-36.0) % 31.7 L RDW (11.8-14.1) % 13.6 Plt Count (130-400) 10^3/uL 275 MPV (8.0-11.0) fL 10.0 Immature Gran % 0.2 Neutrophils % 73.7 Lymphocytes % 13.9 Monocytes % 9.0 Eosinophils % 2.2 Basophils % 1.0 Nucleated RBC % % 0 Absolute Neutrophils (1.2-6.7) 10^3/uL 6.92 H Absolute Lymphocytes (1.2-3.4) 10^3/uL 1.31 Absolute Monocytes (0.1-0.8) 10^3/uL 0.85 H Absolute Eosinophils (0.0-0.7) 10^3/uL 0.21 Absolute Basophils (0.0-0.2) 10^3/uL 0.09 Urine Color (Yellow) Yellow Urine Clarity (Clear) Sl Cloudy Urine pH (5-8) 6.0 Ur Specific [place] (1.005-1.025) >= 1.030 H Urine Protein (Negative) mg/dL 100 H Urine Ketones (Negative) mg/dL Trace H Urine Blood (Negative) Negative Urine Nitrite (Negative) Negative Urine Bilirubin (Negative) Small H Urine Urobilinogen (Up TO 0.2) EU/dL 0.2 Ur Leukocyte Esterase (Negative) Negative Urine RBC (0-2) HPF 0-2 Urine WBC (0-5) HPF 3-5 Ur Epithelial Cells (Negative) HPF Negative Urine Crystals (Negative) HPF Negative Urine Bacteria (Negative) HPF Moderate Urine Casts (Negative) LPF 0-2 Fine Granular Urine Mucus (Negative) Heavy Urine Other (Negative) Few Transitional Ur Culture Indicated? Yes Urine Glucose (Negative) mg/dL Negative
[2021-09-29 23:36] LABS: ALT 39 U/L (16-63); AST 16 U/L (15-37); Alkaline Phosphatase 85 U/L (46-116); Anion Gap 10.4 mmol/L (3-11); BUN 19 mg/dL (7-18); Bilirubin, Total 0.2 mg/dL (0.2-1.0); CO2 27.6 mmol/L (21.0-32.0); Calcium 9.3 mg/dL (8.5-10.1); Chloride 102 mmol/L (98-107); Glucose 80 mg/dL (74-106); Potassium 3.7 mmol/L (3.5-5.1); Sodium 140 mmol/L (136-145); Total Protein 7.2 g/dL (6.4-8.2)
--- NOTE | 2021-09-29 23:53 | DI.VRAD_ITS ---
PROCEDURE INFORMATION: Exam: CT Abdomen And Pelvis Without Contrast Exam date and time: 09/29/2021 10:21 PM Age: 21 years old Clinical indication: Other: Left flank pain, dysuria TECHNIQUE: Imaging protocol: Computed tomography of the abdomen and pelvis without contrast. Total images: 1472 Radiation optimization: All CT scans at this facility use at least one of these dose optimization techniques: automated exposure control; mA and/or kV adjustment per patient size (includes targeted exams where dose is matched to clinical indication); or iterative reconstruction. COMPARISON: CT Private^ROUTINE ABDOMEN PELVIS WITH CONTRAST (Adult) 09/04/2018 7:33 PM FINDINGS: Lungs: Lung bases are unremarkable. Liver: Mild hepatic steatosis. Gallbladder and bile ducts: No calcified stones. No definite gallbladder wall thickening or biliary dilatation. Pancreas: No mass or peripancreatic edema. Spleen: No splenomegaly. Adrenal glands: No adrenal nodule. Kidneys and ureters: No stone in either kidney or ureter. No hydronephrosis or perinephric stranding. Stomach and bowel: Stomach is grossly unremarkable. No small or large bowel dilatation. No definite bowel wall thickening. Appendix: No evidence of appendicitis. Intraperitoneal space: No free air or free fluid. Vasculature: No abdominal aortic aneurysm. Lymph nodes: No significant adenopathy. Urinary bladder: No bladder stone. No definite bladder wall thickening. Reproductive: Unremarkable as visualized. Bones/joints: No significant bony or joint space abnormality. Soft tissues: Extra-abdominal soft tissues are unremarkable. IMPRESSION: No acute findings. No renal stone disease. Dictated and Authenticated by: Dillan Duvall MD. Ordering:STEPH Griffin MD
--- NOTE | 2021-09-30 00:08 | NUR.NOTE ---
Nursing Note: needs to be set up with pcp and i pit the referral in the care management mailbox
[2021-09-30] MEDS: Ciprofloxacin 500 MG TAB PO (00:12)
[2021-09-30 00:15] VITALS: BP 114/62; PULSE 76; RESP 18; O2SAT 99
--- NOTE | 2021-10-02 14:28 | PDOC.ERCMACT ---
- If Service Date Differs Date of service: 10/02/21 Time of Service: 14:28 Care Management Activity Note Jose is seen in the ED for dysuria and acute flank pain. At the request of ED provider, JESSI coordinates a referral to EMIL Santana, of [facility], on-call provider, to assist Jose in obtaining a follow up appointment and in establishing care with a PCP.
== END 2021-09-30 00:18 | disposition home or self-care (01) ==
PROVIDERS: Emergency Provider Physician Assistant
DX: R30.0 Dysuria (principal); M54.59 Other low back pain
CPT/HCPCS: 36415; 80053; 96360; 99284; 74176; 81003; 81015; 85025; 87086

== ENCOUNTER 2021-10-04 18:47 | Emergency (ER) | payer MEDICAID, SELFPAY ==
--- NOTE | 2021-10-04 18:45 | DI.US_ITS ---
Exam(s) US SCROTUM EXAM: US SCROTUM CLINICAL HISTORY: Testicular pain, R/O Torsion TECHNIQUE: Ultrasound of the testes performed using grayscale, color, and Doppler imaging. COMPARISON: US US ABDOMEN from 07/26/2018 FINDINGS: RIGHT HEMISCROTUM: The right testicle exhibits normal size and echo architecture with no evidence of intratesticular mas s. Vascular flow was demonstrated within the right testicle, including arterial waveforms. The epididymis appears unremarkable. There are no epididymal head cysts. There is no ipsilateral varicocele. Mild hydrocele without regional hyperemia LEFT HEMISCROTUM: The left testicle exhibits normal size and echo architecture with no evidence of intratesticular mass . Vascular flow is demonstrated within the left testicle, including arterial waveforms. The epididymis appears unremarkable. There are no epididymal head cysts. There is no ipsilateral varicocele. Small hydrocele without regional hyperemia. IMPRESSION: 1. No evidence of testicular mass nor testicular torsion. 2. Small bilateral hydroceles. 3. No varicoceles evident DATA REPOSITORY:
[2021-10-04 18:53] VITALS: BP 186/126; PULSE 122; RESP 20; TEMP 37.2; O2SAT 98
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
[2021-10-04] MEDS: Normal Saline 1,000 ML 125 ML IV (19:35)
--- NOTE | 2021-10-04 19:42 | NUR.NOTE ---
Pt refusing the Morphine and Zofran ordered. Offered non-narcotic pain meds and patient still refuses.Nursing Note:
[2021-10-04 19:44] LABS: Abs Immature Grans 0.03 10^3/uL (0.0-0.06); Absolute Basophil Count 0.08 10^3/uL (0.0-0.2); Absolute Lymphocyte Count 1.87 10^3/uL (1.2-3.4); Absolute Monocyte Count 0.62 10^3/uL (0.1-0.8); Basophils % 0.7; Eosinophils % 0.6; HCT 47.3 % (40.0-50.0); Immature Grans % 0.3; Lymphocytes % 17.2; MCH 25.7 pg (27.0-33.0); MCHC 31.7 % (32.0-36.0); MPV 9.8 fL (8.0-11.0); Monocytes % 5.7; Neutrophils % 75.5; Nucleated RBC 0 %; Platelet Count 347 10^3/uL (130-400); RBC 5.84 10^6/uL (4.36-5.78); RDW 13.2 % (11.8-14.1); RDW-SD 38.6 fL; WBC 10.86 10^3/uL (4.4-10.8)
[2021-10-04 19:46] LABS: Absolute Eosinophil Count 0.07 10^3/uL (0.0-0.7)
--- NOTE | 2021-10-04 19:56 | DI.VRAD_ITS ---
PROCEDURE INFORMATION: Exam: US Scrotum Exam date and time: 10/04/2021 6:54 PM Age: 21 years old Clinical indication: Other: Left test pain TECHNIQUE: Imaging protocol: Real-time ultrasound of the scrotum and contents with color Doppler and image documentation. COMPARISON: CT ABDOMEN PELVIS WO 09/29/2021 10:46 PM FINDINGS: Right testicle: Normal. No mass. No torsion. Normal vascular flow. Left testicle: Normal. No mass. No torsion. Normal vascular flow. Epididymides: Normal. No hyperemia. Scrotum: Mild fluid noted by the right epididymis, 2.3 x 1.0 cm. Mild fluid accumulation noted by the left epididymis, 1.5 x 0.7 cm. No hyperemia observed around the fluid collections. No evidence of varicocele. IMPRESSION: 1. Negative for testicular torsion. 2. No evidence of epididymitis or orchitis. 3. Mild chronic loculated hydroceles versus old areas of hemorrhage in the scrotum bilaterally. Dictated and Authenticated by: Luiz Mitchell MD. Ordering:NERY Hernandez MD
[2021-10-04 20:01] LABS: ALT 29 U/L (16-63); AST 14 U/L (15-37); Albumin 4.3 g/dL (3.4-5.0); Alkaline Phosphatase 89 U/L (46-116); Anion Gap 12.4 mmol/L (3-11); BUN 11 mg/dL (7-18); Bilirubin, Total 0.5 mg/dL (0.2-1.0); CO2 24.6 mmol/L (21.0-32.0); CREATININE 0.9 mg/dL (0.70-1.30); Calcium 9.6 mg/dL (8.5-10.1); Chloride 102 mmol/L (98-107); Glucose 94 mg/dL (74-106); Potassium 3.7 mmol/L (3.5-5.1); Sodium 139 mmol/L (136-145); Total Protein 8.7 g/dL (6.4-8.2)
--- NOTE | 2021-10-04 20:10 | NUR.NOTE ---
Pt. requesting IV fluid discontinued due to making him feel woosy and not normal. Spoke with provider who advised we could discontinue. Nursing Note:
[2021-10-04 20:13] LABS: Bilirubin Negative (Negative); Blood Trace-intact (Negative); Clarity Clear (Clear); Glucose Negative (Negative); Ketones >=160 mg/dL (Negative); Leukocyte Esterase Negative (Negative); Nitrite Negative (Negative); Specific Gravity >= 1.030 (1.005-1.025); Urobilinogen 0.2 EU/dL (Up TO 0.2); pH 6.5 (5-8)
[2021-10-04 20:19] LABS: Bacteria Negative HPF (Negative); Crystals Negative HPF (Negative); Epithelial Cells Few HPF (Negative); RBC 0-2 HPF (0-2); WBC 0-2 HPF (0-5)
[2021-10-04 20:20] LABS: C & S Indicated? No; Casts Negative LPF (Negative); Mucus Negative (Negative)
== END 2021-10-04 20:34 | disposition home or self-care (01) ==
PROVIDERS: Emergency Provider Registered Nurse Emergency
DX: N50.812 Left testicular pain (principal); W50.1XXA Accidental kick by another person, initial encounter; R11.2 Nausea with vomiting, unspecified
CPT/HCPCS: 36415; 80053; 96360; 99284; 76870; 81003; 81015; 85025; 99283

== ENCOUNTER 2021-10-08 18:56 | Outpatient (REF) | payer MEDICAID, SELFPAY ==
[2021-10-10 11:40] LABS: COVID-19 RT-PCR UVMMC Result Negative (Negative)
== END 2021-10-08 18:57 | disposition home or self-care (01) ==
LOC: LBN 18:56
PROVIDERS: PCP Nurse Practitioner Family; Visit Provider Nurse Practitioner Family
DX: Z20.822 Contact with and (suspected) exposure to COVID-19 (principal)
CPT/HCPCS: U0003

== ENCOUNTER 2021-10-08 19:52 | Emergency (ER) | payer MEDICAID, SELFPAY ==
[2021-10-08 19:59] VITALS: BP 135/66; PULSE 105; RESP 20; TEMP 36.3; O2SAT 98
[2021-10-08 21:04] LABS: Abs Immature Grans 0.02 10^3/uL (0.0-0.06); Absolute Eosinophil Count 0.07 10^3/uL (0.0-0.7); Absolute Lymphocyte Count 2.77 10^3/uL (1.2-3.4); Absolute Monocyte Count 0.84 10^3/uL (0.1-0.8); Absolute Neutrophil Count 6.18 10^3/uL (1.2-6.7); Eosinophils % 0.7; HCT 42.7 % (40.0-50.0); HGB 13.8 g/dL (13.5-17.5); Immature Grans % 0.2; Lymphocytes % 27.8; MCH 26.1 pg (27.0-33.0); MCHC 32.3 % (32.0-36.0); MCV 80.7 fL (80-95); MPV 9.9 fL (8.0-11.0); Monocytes % 8.4; Neutrophils % 61.9; Nucleated RBC 0 %; Platelet Count 347 10^3/uL (130-400); RBC 5.29 10^6/uL (4.36-5.78); RDW 13.2 % (11.8-14.1); RDW-SD 38.8 fL; WBC 9.98 10^3/uL (4.4-10.8)
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
[2021-10-08 21:18] LABS: ALT 25 U/L (16-63); AST 12 U/L (15-37); Alkaline Phosphatase 84 U/L (46-116); Anion Gap 10.5 mmol/L (3-11); BUN 14 mg/dL (7-18); Bilirubin, Total 0.3 mg/dL (0.2-1.0); CO2 24.5 mmol/L (21.0-32.0); CREATININE 0.9 mg/dL (0.70-1.30); Calcium 9.3 mg/dL (8.5-10.1); Chloride 105 mmol/L (98-107); Glucose 100 mg/dL (74-106); Lipase 61 U/L (73-393); Potassium 3.4 mmol/L (3.5-5.1); Sodium 140 mmol/L (136-145); Total Protein 7.9 g/dL (6.4-8.2)
== END 2021-10-08 22:34 | disposition left against medical advice (07) ==
PROVIDERS: Emergency Provider Emergency Medicine; PCP Nurse Practitioner Family
DX: R10.11 Right upper quadrant pain (principal); Z53.29 Procedure and treatment not carried out because of patient's decision for other reasons
CPT/HCPCS: 36415; 80053; 83690; 99283; 85025; 99282

== ENCOUNTER 2021-10-09 13:57 | Outpatient (CLI) | payer MEDICAID, SELFPAY ==
--- NOTE | 2021-10-09 12:00 | DI.US_ITS ---
Exam(s) US ABDOMEN EXAM: US ABDOMEN CLINICAL HISTORY: r/o cholecystitis r10.9 abd pain TECHNIQUE: Ultrasound abdomen performed using standard protocol. COMPARISON: US US ABDOMEN from 07/26/2018 FINDINGS: ABDOMINAL AORTA AND IVC: Visualized portions normal caliber. PANCREAS: Normal where visualized. LIVER: Normal. Hepatopedal flow in the Portal Vein. The liver measures 17.4 cm long. GALLBLADDER: No evidence of cholelithiasis. No evidence of wall thickening. No pericholecystic fluid identified. BILIARY SYSTEM: Common bile duct measures < 7 mm. No intrahepatic biliary ductal dilation. MCKAY'S SIGN: Negative. KIDNEYS: Kidneys are symmetric in size. No evidence of renal calculi. No evidence of hydronephrosis. No renal mass or cyst identified. SPLEEN: Not enlarged. ASCITES: None seen. IMPRESSION: Normal sonographic appearance of the upper abdomen. DATA REPOSITORY:
== END 2021-10-09 14:17 ==
PROVIDERS: PCP Nurse Practitioner Family; Visit Provider Nurse Practitioner Family
DX: R10.9 Unspecified abdominal pain (principal)
CPT/HCPCS: 76700

== ENCOUNTER 2021-11-09 14:50 | Emergency (ER) | payer MEDICAID, SELFPAY ==
[2021-11-09 15:00] VITALS: BP 119/70; TEMP 36.5; O2SAT 98
--- NOTE | 2021-11-09 15:00 | DI.US_ITS ---
Exam(s) US ABDOMEN LIMITED EXAM: US ABDOMEN LIMITED CLINICAL HISTORY: eval ruq for gb pathology TECHNIQUE: Ultrasound abdomen performed using standard protocol. COMPARISON: CT CT ABDOMEN PELVIS WO from 09/29/2021 US US ABDOMEN from 10/09/2021 FINDINGS: Exam is somewhat limited due to patient body habitus. LIVER: Normal size and echogenicity. No focal liver lesions are seen.. GALLBLADDER: No evidence of cholelithiasis. No evidence of wall thickening. No pericholecystic fluid identified. MCKAY'S SIGN: Negative. BILIARY SYSTEM: No intrahepatic or extrahepatic biliary ductal dilation. Right kidney:. No evidence of renal calculi. No evidence of hydronephrosis. No renal mass or cyst id entified. ABDOMINAL AORTA AND IVC: Visualized portions normal caliber. ASCITES: None seen. IMPRESSION: Normal sonographic appearance of the upper abdomen. DATA REPOSITORY:
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
[2021-11-09 15:40] LABS: Abs Immature Grans 0.01 10^3/uL (0.0-0.06); Absolute Basophil Count 0.06 10^3/uL (0.0-0.2); Absolute Eosinophil Count 0.05 10^3/uL (0.0-0.7); Absolute Lymphocyte Count 1.48 10^3/uL (1.2-3.4); Absolute Monocyte Count 0.46 10^3/uL (0.1-0.8); Absolute Neutrophil Count 4.71 10^3/uL (1.2-6.7); Basophils % 0.9; Eosinophils % 0.7; HCT 46.6 % (40.0-50.0); HGB 15.3 g/dL (13.5-17.5); Immature Grans % 0.1; Lymphocytes % 21.9; MCH 26.1 pg (27.0-33.0); MCHC 32.8 % (32.0-36.0); MCV 79.5 fL (80-95); MPV 9.7 fL (8.0-11.0); Monocytes % 6.8; Neutrophils % 69.6; Nucleated RBC 0 %; Platelet Count 317 10^3/uL (130-400); RBC 5.86 10^6/uL (4.36-5.78); RDW 12.8 % (11.8-14.1); RDW-SD 36.6 fL; WBC 6.77 10^3/uL (4.4-10.8)
[2021-11-09 15:57] LABS: ALT 35 U/L (16-63); AST 15 U/L (15-37); Albumin 4.4 g/dL (3.4-5.0); Alkaline Phosphatase 90 U/L (46-116); Anion Gap 12.5 mmol/L (3-11); BUN 13 mg/dL (7-18); Bilirubin, Direct 0.1 mg/dL (0.0-0.2); Bilirubin, Total 0.4 mg/dL (0.2-1.0); CO2 24.5 mmol/L (21.0-32.0); CREATININE 0.9 mg/dL (0.70-1.30); Calcium 9.7 mg/dL (8.5-10.1); Chloride 102 mmol/L (98-107); Glucose 96 mg/dL (74-106); Lipase 54 U/L (73-393); Potassium 3.7 mmol/L (3.5-5.1); Sodium 139 mmol/L (136-145); Total Protein 8.7 g/dL (6.4-8.2)
--- NOTE | 2021-11-09 16:07 | NUR.NOTE ---
Referral [facility] for follow up in 2 weeks for biliary colic. Ragini Jackson Nursing Note:
[2021-11-09 16:10] VITALS: BP 111/69; PULSE 70; RESP 20; O2SAT 98
[2021-11-09 16:25] VITALS: BP 111/79; PULSE 70; RESP 15; O2SAT 98
== END 2021-11-09 16:27 | disposition home or self-care (01) ==
PROVIDERS: Emergency Provider Student in an Organized Health Care Education/Training Program; PCP Nurse Practitioner Family
DX: K80.50 Calculus of bile duct without cholangitis or cholecystitis without obstruction (principal)
CPT/HCPCS: 80053; 83690; 99284; 76705; 82248; 85025; 99283